=== PATIENT | female | born 1945 ===

== ENCOUNTER 2018-02-10 01:20 | Emergency (ER) | payer MEDICARE, MEDICAID ==
[~2018-02-10] VITALS: Ht 149.9 cm; Wt 64.0 kg
[2018-02-10 01:21] VITALS: BP 184/84
[2018-02-10] MEDS ORDERED: HYDROcodone/APAP 5/325 TABLET PO STA (01:51)
[2018-02-10] MEDS ORDERED: HYDROcodone/APAP 5/325 TABLET ONE (01:59)
[2018-02-10 02:20] LABS: BASOPHILS # (AUTO) 0.03 x10^3/uL (0-0.1); BASOPHILS % (AUTO) 0 % (0-1); EOSINOPHILS # (AUTO) 0.15 x10^3/uL (0-0.4); EOSINOPHILS % (AUTO) 2 % (1-7); LYMPHOCYTES # (AUTO) 1.46 x10^3/uL (1-3.4); LYMPHOCYTES % (AUTO) 18 % (22-44); MD NO; MEAN CORPUSCULAR HEMOGLOBIN 29.8 pg (27.0-34.8); MEAN CORPUSCULAR HGB CONC 33.1 g/dL (32.4-35.8); MEAN CORPUSCULAR VOLUME 89.8 fL (80-100); MEAN PLATELET VOLUME 7.5 fL (7.4-10.4); MONOCYTES # (AUTO) 0.72 x10^3/uL (0.2-0.8); MONOCYTES % (AUTO) 9 % (2-9); NEUTROPHILS # (AUTO) 5.72 x10^3/uL (1.8-6.8); NEUTROPHILS % (AUTO) 71 % (42-75); PLATELET COUNT 347 x10^3/uL (130-400); RED BLOOD COUNT 3.94 x10^6/uL (3.82-5.3)
[2018-02-10 02:28] LABS: CULTURE INDICATED? YES; MICROSCOPIC INDICATED
[2018-02-10 02:31] LABS: ALANINE AMINOTRANSFERASE 18 U/L (12-78); ALBUMIN 3.4 g/dL (3.4-5.0); ANION GAP 6 mmol/L (5-15); CALCIUM 8.7 mg/dL (8.5-10.1); CHLORIDE 111 mmol/L (98-107); CREATININE 0.64 mg/dL (0.55-1.02)
[2018-02-10 02:34] LABS: ALKALINE PHOSPHATASE 73 U/L (45-117); BILIRUBIN,TOTAL 0.7 mg/dL (0.2-1.0); TOTAL PROTEIN 6.9 g/dL (6.4-8.2)
[2018-02-10] MEDS ORDERED: FOSFOMYCIN 3 GM PACKET PO STA (02:43)
[2018-02-10] MEDS ORDERED: NITROFURANTOIN (MACROBID) 100 MG CAPSULE PO ONE (03:00)
== END 2018-02-10 03:13 | disposition home or self-care (01) ==
LOC: ED 02:40
DX: N30.00 Acute cystitis without hematuria (principal); I10 Essential (primary) hypertension; K08.89 Other specified disorders of teeth and supporting structures
CPT/HCPCS: 36415; 80053; 81001; 85025; 87086; 99284

== ENCOUNTER 2018-05-04 22:40 | Emergency (ER) | payer MEDICARE, MEDICAID ==
[~2018-05-04] VITALS: Ht 149.9 cm; Wt 62.4 kg
[2018-05-04] MEDS ORDERED: HYDROcodone/APAP 5/325 TABLET PO PRN (23:30)
[2018-05-04] MEDS ORDERED: HYDROcodone/APAP 5/325 TABLET ONE (23:32)
[2018-05-05 00:38] VITALS: BP 133/80
== END 2018-05-05 02:22 | disposition home or self-care (01) ==
LOC: ED 05-05 00:25
DX: S01.511A Laceration without foreign body of lip, initial encounter (principal); S50.12XA Contusion of left forearm, initial encounter; S50.11XA Contusion of right forearm, initial encounter; Y04.2XXA Assault by strike against or bumped into by another person, initial encounter; Y93.89 Activity, other specified; Y92.59 Other trade areas as the place of occurrence of the external cause; Y99.9 Unspecified external cause status
CPT/HCPCS: 70486; 99284